=== PATIENT | female | born 1960 | race Two or more races ===

== ENCOUNTER 2024-05-23 07:49 | Outpatient (AMB) | payer MEDICAID, SELFPAY ==
--- NOTE | 2024-05-23 08:07 | ORTHONT_ITS ---
Vital signs 05/23/24 08:08 Height 1.6 m Height Method Stated Weight 64.098 kg Weight Measurement Method Standing Scale BMI 25.0 BP 112/74 Blood Pressure Source Automatic Cuff Blood Pressure Location Left Upper Arm Position Sitting Respiration 18 Pulse 74 Pulse Source Monitor Temp 96.8 F Temp Source Temporal Artery Scan Pulse Oximetry (%) 98 Oxygen Delivery Method Room Air Med/Allergies Allergies & Medications Allergies UNKNOWN ANESTHESIA Allergy (Severe, Uncoded 05/23/24 08:09) Anaphylaxis Medication Reconciliation simvastatin 20 mg tablet 20 mg PO QPM ##0 05/20/14 [History Confirmed 05/23/24] zolpidem 5 mg tablet 5 mg PO HS ##30 04/12/17 [History Confirmed 05/23/24] gabapentin 400 mg capsule 400 mg PO BID 06/26/21 [History Confirmed 05/23/24] ibuprofen 600 mg tablet 600 mg PO TID PRN Pain 06/26/21 [History Confirmed 05/23/24] levothyroxine 100 mcg tablet 100 mcg PO QDAY 06/26/21 [History Confirmed 05/23/24] loratadine 10 mg tablet 10 mg PO QDAY 06/26/21 [History Confirmed 05/23/24] metformin 1,000 mg tablet 1,000 mg PO BID 06/26/21 [History Confirmed 05/23/24] simvastatin 20 mg tablet 20 mg PO QDAY 06/26/21 [History Confirmed 05/23/24] dicyclomine 20 mg tablet 20 mg PO BID #14 tabs 01/12/22 [Rx Confirmed 05/23/24] hydrocodone 5 mg-acetaminophen 325 mg tablet 1 tab PO BID PRN 10/22/23 [History Confirmed 05/23/24] meloxicam 7.5 mg tablet 7.5 mg PO QDAY #45 tabs 10/26/23 [Rx Confirmed 05/23/24] meclizine 50 mg tablet 50 mg PO BID PRN dizziness #20 tabs 01/28/24 [Rx Confirmed 05/23/24] meloxicam 7.5 mg tablet 7.5 mg PO QDAY PRN knee pain #45 tabs 05/23/24 [Rx] Subjective Visit Visit for: follow up visit, hip, knee, x-rays (RESULTS) and MRI (RESULTS) Immunization / Flu Flu Vaccine in the Last 12 Months: Yes Flu Vaccine Exclusion Criteria: Already Received History of Present Illness Chief complaint: XRAY/MRI RESULTS Patient is a 64-year-old female who presents today for bilateral knee pain worse on the right. This has been ongoing for several years and is worsened in the last 6 months. She does have a history of multiple spine surgeries and is using a walker because of it. She has had cervical and lumbar surgery according to her. She is using a walker because of the pain patient had any injections. She was told that she is likely a candidate for a knee replacement by her primary care provider. She is here for follow-up. She gets injections every 3 months with her spine doctor and pain management doctor. She has had spine surgery twice in the past. She has not had any workup recently. She has persistent p ain and the injections do not really help. We went over her MRI and discussed that it shows a small disc bulge. I not see him again operative for her knee Pain Pain level (0-10): 8 Pain duration: ALL DAY Pain location: inside (medial) and outside (lateral) Pain quality: sharp, dull and aching Pain timing: night, increases with activity and stairs Associated signs & symptoms: numbness, weakness and stiffness Ambulatory data Ambulatory device: walker Treatments Improvement with previous injections: No Improvement with PT: No Improvement with NSAIDS: no Review of Systems Review of Systems: All systems negative unless otherwise noted in HPI. Exam Exam Patient is in no acute distress and is cooperative with the examination today. Breathing is nonlabored. In no respiratory distress. Bilateral extremities were evaluated and demonstrates sensation intact to light touch. Palpable pedal pulses are present. No significant edema is present. Bilateral hips were examined. The patient has no pain with log roll of the hips. Internal rotation to 30 degrees and external rotation to 30 degrees is painless. Negative FADIR. The left knee was examined. The left knee is in [varus] alignment. Range of motion from [0-115] degrees. Knee is stable to varus and valgus as well as AP translation with <5mm. Patient has a [negative] McMurrays. There is [no] pain with patellofemoral compression and [no] crepitus noted. The knee is [tender] to palpation [medially]. The right knee was also examined. The right knee is in [varus] alignment. Range of motion from [0-120] degrees. Knee is stable to varus and valgus as well as AP translation with <5mm. Patient has a [negative] McMurrays. There is [no] pain with patellofemoral compression and [no] crepitus noted. The knee is [tender] to palpation [medially]. Her x-rays demonstrate mild to moderate arthritis bilaterally. Her joint spaces are still relatively preserved. Assessment and Plan Problem List (1) Bilateral primary osteoarthritis of knee: Status: Acute Plan: Patient is a 63-year-old female with bilateral knee pain worse on the right. This been ongoing for several years and is worsened in the last 6 months. Her x-rays demonstrate mild to moderate arthritis. Her pain is significantly out of proportion to her x-rays. She reports pain that starts in the thigh and radiates down past her knee. It almost seems like it is spinal stenosis. I recommend a spine workup. It is a little peculiar to me that her pain is still out of proportion and that she is using a walker with her x-rays. I recommend doing a workup of her spine given the distribution of the pain We will try a right knee injection. Will also send her anti-inflammatories Recommend knee cortisone injection as patient would like to proceed with conservative treatment at this time. The risks and benefits of the procedure were reviewed with the patient and patient gave verbal consent to continue with the procedure. Procedure: performed by Dr. Proctor Using sterile technique the Right knee was thoroughly prepped with alcohol, and approximately 1 cc of Kenalog 40 mg/mL and 4 cc of 1% lidocaine was injected without resistance into the medial tibial femoral joint space. The patient tolerated the procedure. (2) Bilateral knee pain: Status: Acute (3) Spinal stenosis: Status: Acute Office Procedures GNS Level of Care Nursing/Assessment Patient Status: Established Patient Nursing Assessment/Reassesment: Medication Reconciliation, Update PMH in EMR and Vital Signs Coordination of Care: Complex Care and Chronic Disease 1-5, Education Complex Pt/Fam, Consent,records obtained, informed consent, 1 Ins Authorization, Results/Orders obtained and Staff clarify orders Established Patient Charge Established Patient Point Assignment: 110 Established Patient Point Charge: EP Level 3 (80-115) Past Medical History Past Medical History Have you ever been diagnosed with any of the following: Neurological Problems Migraine: Yes Cardiology Problems Hypercholesterolemia: Yes Congestive Heart Failure: No Hypertension: Yes Respiratory Problems Chronic Obstructive Pulmonary Disease (COPD): No Asthma: No Tuberculosis: Yes Smoking: No Smoking Cessation Counseling: No Smoking Exposure: No Tobacco Use: No Clubbing: No Genital/Urinary Problems Renal Disease: No Endocrine Problems Diabetes Mellitus Type 1: No Diabetes Mellitus Type 2: Yes Hypothyroidism: Yes Blood Problems Sickle Cell Disease: No Psychologic Problems Depression: Yes Other Problems Blood Transfusions: No Blood Transfusion Reaction: No Anesthesia Reactions: Yes Surgical History Hysterectomy: Yes
[2024-05-23 08:08] VITALS: BP 112/74; PULSE 74; RESP 18; TEMP 36; O2SAT 98; BMI 25.0
== END 2024-05-23 08:26 | disposition home or self-care (01) ==
LOC: HODSRG 07:49
PROVIDERS: PCP Physician Assistant; Referring Provider Physician Assistant; Supervising Provider Orthopaedic Surgery Adult Reconstructive Orthopaedic Surgery; Visit Provider Orthopaedic Surgery Adult Reconstructive Orthopaedic Surgery
DX: M17.0 Bilateral primary osteoarthritis of knee (principal); M25.561 Pain in right knee; M25.562 Pain in left knee; M48.00 Spinal stenosis, site unspecified; I10 Essential (primary) hypertension; E78.00 Pure hypercholesterolemia, unspecified
CPT/HCPCS: 20610; 99213; J3301; J3490; G0463

== ENCOUNTER 2024-08-29 21:22 | Emergency (ER) | payer MEDICAID, SELFPAY ==
[2024-08-29 21:23] VITALS: BMI 25.6
[2024-08-29 22:18] VITALS: BP 127/75; PULSE 91; RESP 18; TEMP 37.1; O2SAT 97
--- NOTE | 2024-08-29 22:26 | XR_ITS ---
Examination: Duplex scan of the lower extremity, unilateral left complete Date and time of exam: August 29, 2024 10:30 PM Indications: Post varicose vein surgery August 11, 2024 with leg pain and swelling Technique: Duplex scan of the extremity veins using B-mode/grayscale imaging and Doppler spectral analysis and color flow Attention is directed to internal echogenicity, compression and augmentation involving these veins, color flow assessment, spectral analysis Findings: Major deep venous structures in the extremity demonstrate normal course and caliber. There is no evidence of deep vein thrombosis. Normal color flow and spectral analysis Impression: Negative for DVT.. Positive for DVT involving superficial greater saphenous vein
[2024-08-29] MEDS: HYDROcodone/APAP 5/325 TABLET 1 TAB PO (22:30)
--- NOTE | 2024-08-29 22:36 | PD.EDEXREM ---
ED Extremity Problem RME/HPI General Chief complaint: Extremity Injury, Lower Stated complaint: LEFT LEG PAIN/NUMBNESS Time Seen by Provider: 08/29/24 22:26 Arrival date/time: 08/29/24 21:22 64F with history of hypothyroidism and DM presents to ED with 2 days of L lower back pain that radiates down LLE and some numbness, but no weakness. Patient denies fall/trauma and SOB. Patient had bilateral varicose vein surgery about 2 weeks ago. Limitations: no limitations Related Data Home Medications ?Medication ?Instructions ?Recorded ?Confirmed simvastatin 20 mg tablet 20 mg PO QPM ##0 05/20/14 05/23/24 zolpidem 5 mg tablet 5 mg PO HS ##30 04/12/17 05/23/24 gabapentin 400 mg capsule 400 mg PO BID 06/26/21 05/23/24 ibuprofen 600 mg tablet 600 mg PO TID PRN Pain 06/26/21 05/23/24 levothyroxine 100 mcg tablet 100 mcg PO QDAY 06/26/21 05/23/24 loratadine 10 mg tablet 10 mg PO QDAY 06/26/21 05/23/24 metformin 1,000 mg tablet 1,000 mg PO BID 06/26/21 05/23/24 simvastatin 20 mg tablet 20 mg PO QDAY 06/26/21 05/23/24 hydrocodone 5 mg-acetaminophen 325 1 tab PO BID PRN 10/22/23 05/23/24 mg tablet Previous Rx's ?Medication ?Instructions ?Recorded dicyclomine 20 mg tablet 20 mg PO BID #14 tabs 01/12/22 meloxicam 7.5 mg tablet 7.5 mg PO QDAY #45 tabs 10/26/23 meclizine 50 mg tablet 50 mg PO BID PRN dizziness #20 tabs 01/28/24 meloxicam 7.5 mg tablet 7.5 mg PO QDAY PRN knee pain #45 05/23/24 tabs apixaban 5 mg (74 tabs) tablets in 5 mg PO BID #74 tabs 08/30/24 a dose pack (Eliquis DVT-PE Treat 30D Start) Allergies Allergy/AdvReac Type Severity Reaction Status Date / Time UNKNOWN ANESTHESIA Allergy Severe Anaphylaxis Uncoded 05/23/24 08:09 Review of Systems Review of Systems Systems Reviewed: All systems reviewed, normal except as documented Constitutional Constitutional: Reports system reviewed and no additional complaints, except as documented, Denies fever(s) and Denies headache(s) ENT Ears, Nose, Mouth, and Throat: Denies disequilibrium and Denies headache(s) Cardiovascular Cardiovascular: Reports system reviewed and no additional complaints, except as documented, Denies chest pain and Denies dyspnea Respiratory Respiratory: Reports system reviewed and no additional complaints, except as documented, Denies cough and Denies dyspnea Gastrointestinal Gastrointestinal: Reports system reviewed and no additional complaints, except as documented, Denies abdominal pain, Denies nausea and Denies vomiting Musculoskeletal Musculoskeletal: Reports as per HPI, Reports back pain and Reports radiating pain into limb Neurologic Neurologic: Reports system reviewed and no additional complaints, except as documented, Denies confusion, Denies disequilibrium and Denies headache(s) Psychiatric Psychiatric: Denies confusion Past Medical History Past Medical History NEUROLOGIC: Positive Neurological Disorders and Migraine CARDIAC: Positive Hypercholesterolemia and Hypertension; Negative Cardiac Disorders or Congestive Heart Failure RESPIRATORY: Positive Tuberculosis; Negative Chronic Obstructive Pulmonary Disease (COPD), Asthma, Smoking, Smoking Cessation Counseling, Smoking Exposure, Tobacco Use or Clubbing GASTROINTESTINAL: Positive Gastrointestinal Disorders GENITOURINARY: Negative Genitourinary Disorders or Renal Disease MUSCULOSKELETAL: Positive Musculoskeletal Disorders ENDOCRINE: Positive Endocrine Disorders, Diabetes Mellitus Type 2 and Hypothyroidism; Negative Diabetes Mellitus Type 1 HEMATOLOGIC: Negative Blood Disorders or Sickle Cell Disease PSYCHO/SOCIAL: Positive Depression OTHER HISTORY: Positive Anesthesia Reactions; Negative Autoimmune Disease, Blood Transfusions or Blood Transfusion Reaction Family History FAMILY HISTORY: Positive Family Cardiac Disorders; Negative Family Cancer, Family Surgery or Family Anesthesia Reaction Surgical History SURGICAL: Positive Abdominal Surgery, Joint Replacement, Hysterectomy and Section; Negative Cardiac Surgery, Endocrine Surgery, Ear Surgery or Neurologic Surgery Social History SMOKING STATUS: Never smoker ED Exam General Limitations: Present no limitations General appearance: Present alert and in no apparent distress Head Head exam: Present atraumatic Eye Eye exam: Present normal appearance, PERRL and EOMI ENT ENT exam: Present normal exam, normal oropharynx and mucous membranes moist Neck Neck exam: Present normal inspection, full ROM and trachea midline Chest Chest inspection: Present normal inspection and symmetric chest wall rise Respiratory Respiratory exam: Present normal lung sounds bilaterally Cardiovascular Cardiovascular exam: Present regular rate, normal rhythm and normal heart sounds Abdominal Exam Abdominal exam: Present soft and normal bowel sounds Extremities Exam Extremities exam: Present normal inspection and full ROM Back Exam Back exam: Present normal inspection and full ROM Neurological Exam Neurological exam: Present alert, oriented X3 and CN II-XII intact Psychiatric Psychiatric exam: Present normal affect and normal mood Skin Skin exam: Present warm, dry, intact and normal color Course Quality Measures none Orders Category Date Time Status US venous doppler LE LT Stat Exams 08/29/24 22:26 Completed CBC Stat Lab 08/29/24 23:12 Completed CMP [Comprehensive Metabolic Panel] Stat Lab 08/29/24 23:12 Completed INR [Prothrombin Time with INR] Stat Lab 08/29/24 23:12 Completed PTT [Partial Thromboplastin Time] Stat Lab 08/29/24 23:12 Completed Apixaban [Eliquis] Med 08/30/24 00:15 Discontinued 10 mg PO X1 ONE HYDROcodone*/APAP 5/325 [Britt 5/325] Med 08/29/24 22:26 Discontinued 1 tab PO X1 ONE Morphine Inj Med 08/30/24 00:15 Discontinued 5 mg IM X1 ONE Vital Signs Vital signs: Vital Signs Temperature 98.7 F 08/29/24 22:18 Pulse Rate 91 08/29/24 22:18 Respiratory Rate 18 08/29/24 22:18 Blood Pressure 127/75 08/29/24 22:18 Pulse Oximetry (%) 97 08/29/24 22:18 Oxygen Delivery Method Room Air 08/29/24 22:18 O2 at 97% on RA and WNLs Extremity Problem MDM Narrative MDM Narrative:: 64F with history of hypothyroidism and DM presents to ED with 2 days of L lower back pain that radiates down LLE and some numbness, but no weakness. Patient denies fall/trauma and SOB. Patient had bilateral varicose vein surgery about 2 weeks ago. Physical exam reveals no gross abnormality of LLE. Patient is afebrile, calm, and alert. US reveals no DVT, but proximal superficial greater saphenous vein thrombosis. Given location, patient's age and risk factors, will treat as DVT. Patient data External records reviewed:: [facility] previous records Clinical information provided by:: patient Social determinants that could affect healthcare access:: none Patient has the following chronic illnesses:: hypothyroidism and DM How is presenting disease/condition affected by chronic disease/condition?: exacerbated by Evaluation data The following diagnostics were reviewed and interpreted by me:: radiology exam(s) Lab and/or radiology exams considered but not ordered:: ordered Interpretation Summary: above Medications / Prescriptions Medications or Prescriptions considered but not ordered:: ordered Medication administrations:: Medication Administration History Discontinued Medications Hydrocodone Bitart/Acetaminophen (Hydrocodone/Apap 5/325 Tablet) 1 tab PO X1 ONE Stop: 08/29/24 22:27 Last Admin: 08/29/24 22:30 Dose: 1 tab Documented By: LINA Apixaban (Apixaban 2.5 Mg Tablet) 10 mg PO X1 ONE Stop: 08/30/24 00:16 Morphine Sulfate (Morphine Sulf Inj 10 Mg/Ml Vial) 5 mg IM X1 ONE Stop: 08/30/24 00:16 above Consultations Consultation(s) initiated? (list below): No Diagnosis Extremity Problem Differential Diagnosis: herpes zoster, gout, cellulitis, superficial thrombophlebitis, deep venous thrombosis of upper extremity, lower extremity edema, deep vein thrombosis of lower extremity and other (thrombosis of L saphenous vein) Most likely diagnosis given after review of the tests above:: thrombosis of L saphenous vein Admission Indicated Admission indicated?: not indicated Admission Request Was there a request for admission?: No Disposition Plan Disposition Plan: Discharge Discharge Attestation Discharge Attestation: The patient and all family members were given an opportunity to ask questions and understood the discharge instructions. Discharge instructions specifically effects, indications for sooner follow up or return to the emergency department, and the expected course of current diagnosis. Patient condition: Stable Discharge Plan Plan Patient Disposition: HOME (Self Care) Disposition Comment: Stable Prescriptions/Referrals Prescriptions/Med Rec: Pierce Richard DVT-PE Treat 30D Start 5 mg (74 tabs) tablets,dose pack 5 mg PO BID Qty: 74 0RF Rx Instructions: 10 mg BID for 1 week; 5 mg BID afterwards No Action hydrocodone-acetaminophen 5-325 mg tablet 1 tab PO BID PRN meloxicam 7.5 mg tablet 7.5 mg PO QDAY Qty: 45 3RF meloxicam 7.5 mg tablet 7.5 mg PO QDAY PRN (Reason: knee pain) Qty: 45 3RF simvastatin 20 MG tablet 20 mg PO QPM Qty: 0 zolpidem 5 mg Tablet 5 mg PO HS Qty: 30 gabapentin 400 mg capsule 400 mg PO BID levothyroxine 100 mcg tablet 100 mcg PO QDAY simvastatin 20 mg tablet 20 mg PO QDAY metformin 1,000 mg tablet 1,000 mg PO BID ibuprofen 600 mg tablet 600 mg PO TID PRN (Reason: Pain) loratadine 10 mg tablet 10 mg PO QDAY dicyclomine 20 mg tablet 20 mg PO BID Qty: 14 0RF meclizine 50 mg tablet 50 mg PO BID PRN (Reason: dizziness) Qty: 20 0RF Referrals: No Primary/Family,Physician [Primary Care Provider] - In 1 week Problem List Clinical Impression: Thrombosis of left saphenous vein Patient/Caregiver Discharge Instructions Education Materials: Venous Thromboembolism Additional Instructions: Please follow-up with PCP within 24-48 hours and return immediately if symptoms worsen. Print Language: Swedish Stand Alone Forms: Patient Portal Info Letter PA/RESEARCH EDITOR Supervising Physician PA/RESEARCH EDITOR Supervising Physician: Dr. Angeles
[2024-08-29 23:21] LABS: Basophils # (Auto) 0.1 Thou/mm3 (0.0-0.2); Basophils % (Auto) 1 % (0-2.5); Eosinophils # (Auto) 0.4 Thou/mm3 (0.0-0.5); Eosinophils % (Auto) 4 % (0-10); Hemoglobin 12.4 g/dL (12.0-16.0); Immature Granulocytes % (Auto) 0 % (0-0); Immature Granulocytes Auto 0.02 Thou/mm3 (0.00-0.00); Lymphocytes # (Auto) 3.3 Thou/mm3 (1.0-4.8); Lymphocytes % (Auto) 36 % (10-50); Mean Corpuscular HGB Conc 32.6 g/dl (31.0-37.0); Mean Corpuscular Hemoglobin 29.7 pg (25.0-35.0); Mean Corpuscular Volume 91 fL (80-100); Monocytes # (Auto) 0.7 Thou/mm3 (0.0-0.8); Monocytes % (Auto) 7 % (0-12); Neutrophils # (Auto) 4.8 Thou/mm3 (1.8-7.7); Neutrophils % (Auto) 52 % (37-80); Nucleated Red Blood Cell % 0 /100 WBC (0); Platelet Count 267 Thou/mm3 (140-440); RDW Standard Deviation 43.1 fL (36.4-46.3); Red Blood Count 4.18 Miln/mm3 (4.00-5.20); White Blood Count 9.3 Thou/mm3 (3.6-11.0)
[2024-08-29 23:34] LABS: INR 0.9 (0.9-1.3); Partial Thromboplastin Time 24.8 Seconds (22.0-36.0); Prothrombin Time 10.3 Seconds (9.0-12.2)
[2024-08-29 23:48] LABS: Anion Gap 7 (7-16); Blood Urea Nitrogen 20 mg/dL (9-23); Carbon Dioxide 25.4 mMol/L (20.0-31.0); Chloride 108 mMol/L (98-107); Creatinine (Component) 0.7 mg/dL (0.6-1.3); Potassium 4.2 mMol/L (3.4-5.1); Sodium 140 mMol/L (136-145)
[2024-08-29 23:49] LABS: Alanine Aminotransferase 13 U/L (10-49); Albumin, Serum 4.1 gm/dL (3.4-4.8); Albumin/Globulin Ratio 1.6 (1.2-2.2); Alkaline Phosphatase 94 U/L (46-116); Aspartate Amino Transferase 17 U/L (0-34); BUN/Creatinine Ratio 29 Ratio (12-20); Bilirubin,Total 0.4 mg/dL (0.3-1.2); Calcium 9.1 mg/dL (8.3-10.6); Calcium (Corrected) 9.1 mg/dL (8.5-10.1); Globulin 2.5 gm/dL (2.3-3.5); Glucose 106 mg/dL (74-106); Osmolality,Calculated 282 (275-295); Total Protein 6.6 gm/dL (5.7-8.2); eGFR > 60 See Note
[2024-08-30] MEDS: APIXABAN 2.5 MG TABLET 10 MG PO (00:32)
[2024-08-30] MEDS: MORPHINE SULF INJ 10 MG/ML VIAL 5 MG IM (00:32)
== END 2024-08-30 00:50 | disposition home or self-care (01) ==
PROVIDERS: Physician Assistant; Emergency Provider Emergency Medicine
DX: I82.812 Embolism and thrombosis of superficial veins of left lower extremity (principal)
CPT/HCPCS: 36415; 80053; 85025; 85610; 85730; 93971; 96372; 99284; J2270; A9270

== ENCOUNTER → 2024-12-05 | Outpatient (CLI) | payer MEDICAID, SELFPAY ==
--- NOTE | 2024-12-05 13:00 | XR_ITS ---
Examination: Screening digital mammography, bilateral Computer aided detection 3-D breast Tomosynthesis, bilateral Date and time of exam: December 05, 2024 1145 hours Compared to mammograms dating to October 28, 2015 Indication: Screening Technique: Nonmagnified MLO, CC views of the breasts to been obtained, reconstructed from 3-D Tomosynthesis images. R2 computer aided detection program utilized for evaluation of suspicious masses and/or abnormal calcifications. 3-D Tomosynthesis images obtained. Findings: Scattered areas of fibroglandular density. Again noted small focus microcalcifications nipple level left breast posterior depth Impression: BI-RADS Category 0: Incomplete: Need additional imaging evaluation Recommend follow-up spot magnification views of microcalcifications posterior left breast as well as left breast sonography to complete the workup
== END | disposition home or self-care (01) ==
PROVIDERS: PCP Physician Assistant; Referring Provider Physician Assistant; Visit Provider Physician Assistant
DX: Z12.31 Encounter for screening mammogram for malignant neoplasm of breast (principal); R92.323 Mammographic fibroglandular density, bilateral breasts; R92.0 Mammographic microcalcification found on diagnostic imaging of breast
CPT/HCPCS: 77063; 77067

== ENCOUNTER 2024-12-28 09:08 | Emergency (ER) | payer MEDICAID, SELFPAY ==
[2024-12-28 09:09] VITALS: BMI 24.6
[2024-12-28 09:18] VITALS: BP 113/72; PULSE 86; RESP 16; TEMP 37.4; O2SAT 97
--- NOTE | 2024-12-28 09:28 | XR_ITS ---
Examination: CT abdomen and pelvis without contrast. Coronal 3-D reconstructions. Sagittal 2-D reconstructions. Date and time of exam:December 28, 2024 0933 hours COMPARISON: January 12, 2022 INDICATIONS: Onset left-sided flank pain beginning this morning CTDI: vol (mGy): 8.05 DLP: (mGycm): 141 Technique: Axial images of the abdomen have been obtained, 3 mm slice thickness Intravenous contrast material has not been administered. Low dose protocols were performed. One or more of the following dose reduction techniques were used; automated exposure control, adjustment of the mA and/or KV according to patient size, use of iterative reconstruction technique. Findings: No focal liver or splenic lesions Absent gallbladder No pancreatic mass. No renal or ureteral calculi, no hydronephrosis Aorta normal size No bowel obstruction No pericecal inflammatory change Colonic diverticulosis No definite diverticulitis Contracted urinary bladder No pelvic mass Significant osteopenia IMPRESSION: No renal or ureteral calculi, no hydronephrosis. No bladder mass or bladder calculi.
--- NOTE | 2024-12-28 09:29 | PD.EDRME ---
Rapid Medical Screening Exam RME Arrival date/time: 12/28/24 09:08 64-year-old female with a history of hyperlipidemia, type 2 diabetes, hypothyroidism, presents to the emergency room with a chief complaint of left lower quadrant abdominal pain x 4 days. Chief Complaint: Abdominal Pain Time Seen by Provider: 12/28/24 09:10 Vital signs: Vital Signs Temperature 99.4 F 12/28/24 09:18 Pulse Rate 86 12/28/24 09:18 Respiratory Rate 16 12/28/24 09:18 Blood Pressure 113/72 12/28/24 09:18 Pulse Oximetry (%) 97 12/28/24 09:18 Oxygen Delivery Method Room Air 12/28/24 09:18 Vital signs reviewed by provider: Yes
[2024-12-28 09:56] LABS: Basophils # (Auto) 0.0 Thou/mm3 (0.0-0.2); Basophils % (Auto) 0 % (0-2.5); Eosinophils # (Auto) 0.1 Thou/mm3 (0.0-0.5); Eosinophils % (Auto) 2 % (0-10); Hematocrit 37.7 % (36.0-46.0); Hemoglobin 12.9 g/dL (12.0-16.0); Immature Granulocytes Auto 0.01 Thou/mm3 (0.00-0.00); Lymphocytes # (Auto) 1.7 Thou/mm3 (1.0-4.8); Lymphocytes % (Auto) 24 % (10-50); Mean Corpuscular HGB Conc 34.2 g/dl (31.0-37.0); Mean Corpuscular Hemoglobin 30.1 pg (25.0-35.0); Mean Corpuscular Volume 88 fL (80-100); Monocytes # (Auto) 0.4 Thou/mm3 (0.0-0.8); Monocytes % (Auto) 5 % (0-12); Neutrophils # (Auto) 4.6 Thou/mm3 (1.8-7.7); Neutrophils % (Auto) 68 % (37-80); Nucleated Red Blood Cell # 0.00 Thou/mm3 (0.00-0.00); Nucleated Red Blood Cell % 0 /100 WBC (0); Platelet Count 289 Thou/mm3 (140-440); RDW Standard Deviation 41.3 fL (36.4-46.3); Red Blood Count 4.29 Miln/mm3 (4.00-5.20); White Blood Count 6.8 Thou/mm3 (3.6-11.0)
[2024-12-28 10:08] LABS: Collection Type, Urine Clean Catch
[2024-12-28 10:17] LABS: Alanine Aminotransferase 15 U/L (10-49); Albumin, Serum 4.6 gm/dL (3.4-4.8); Albumin/Globulin Ratio 1.4 (1.2-2.2); Alkaline Phosphatase 105 U/L (46-116); Anion Gap 7 (7-16); Aspartate Amino Transferase 19 U/L (0-34); BUN/Creatinine Ratio 14 Ratio (12-20); Bilirubin,Total 0.6 mg/dL (0.3-1.2); Blood Urea Nitrogen 11 mg/dL (9-23); Calcium 9.3 mg/dL (8.3-10.6); Calcium (Corrected) 9.3 mg/dL (8.5-10.1); Carbon Dioxide 24.7 mMol/L (20.0-31.0); Chloride 108 mMol/L (98-107); Creatinine (Component) 0.8 mg/dL (0.6-1.3); Estimated Creatinine Clearance 64.4 mL/min (>60); Globulin 3.2 gm/dL (2.3-3.5); Glucose 121 mg/dL (74-106); Lipase 77 U/L (12-53); Osmolality,Calculated 279 (275-295); Potassium 3.7 mMol/L (3.4-5.1); Sodium 140 mMol/L (136-145); Total Protein 7.8 gm/dL (5.7-8.2); eGFR > 60 See Note
[2024-12-28 11:45] LABS: Bacteria,Urine 1+; Bilirubin,Urine Negative (Negative); Blood,Urine Negative (Negative); Color,Urine Yellow (Lt Yel-Yel); Glucose, Urine Negative (Negative); Ketones,Urine Negative (Negative); Leukocyte Esterase,Urine Positive (Negative); Nitrite,Urine Negative (Negative); PH,Urine 6.0 (5.0-7.0); Protein,Urine 1+ (Neg - Trace); RBC,Urine 3 /hpf (0-3); Specific Gravity,Urine 1.024 (1.001-1.035); Squamous Epithelial Cell,Urine 3 /hpf (0-5); Urobilinogen,Urine Negative mg/dL (0.0-1.0); WBC,Urine 14 /hpf (0-5)
[2024-12-28 11:50] LABS: Clarity,Urine Hazy (Clear/Hazy)
--- NOTE | 2024-12-28 12:11 | PD.EDABDPN ---
ED Abdominal Pain RME/HPI General Chief Complaint: Abdominal Pain Stated complaint: LLQ PAIN FOR 4 DAYS Time seen by provider: 12/28/24 09:10 Arrival date/time: 12/28/24 09:08 64-year-old female with no known medical history presents to the emergency room with a chief complaint of left lower quadrant abdominal pain and dysuria x 4 days Source: patient Mode of arrival: ambulatory Limitations: no limitations RME / HPI RME / HPI narrative: 12/28/24 09:08 64-year-old female with a history of hyperlipidemia, type 2 diabetes, hypothyroidism, presents to the emergency room with a chief complaint of left lower quadrant abdominal pain x 4 days. Related Data Home Medications ?Medication ?Instructions ?Recorded ?Confirmed simvastatin 20 mg tablet 20 mg PO QPM ##0 05/20/14 05/23/24 zolpidem 5 mg tablet 5 mg PO HS ##30 04/12/17 05/23/24 gabapentin 400 mg capsule 400 mg PO BID 06/26/21 05/23/24 ibuprofen 600 mg tablet 600 mg PO TID PRN Pain 06/26/21 05/23/24 levothyroxine 100 mcg tablet 100 mcg PO QDAY 06/26/21 05/23/24 loratadine 10 mg tablet 10 mg PO QDAY 06/26/21 05/23/24 metformin 1,000 mg tablet 1,000 mg PO BID 06/26/21 05/23/24 simvastatin 20 mg tablet 20 mg PO QDAY 06/26/21 05/23/24 hydrocodone 5 mg-acetaminophen 325 1 tab PO BID PRN 10/22/23 05/23/24 mg tablet Previous Rx's ?Medication ?Instructions ?Recorded dicyclomine 20 mg tablet 20 mg PO BID #14 tabs 01/12/22 meloxicam 7.5 mg tablet 7.5 mg PO QDAY #45 tabs 10/26/23 meclizine 50 mg tablet 50 mg PO BID PRN dizziness #20 tabs 01/28/24 meloxicam 7.5 mg tablet 7.5 mg PO QDAY PRN knee pain #45 05/23/24 tabs apixaban 5 mg (74 tabs) tablets in 5 mg PO BID #74 tabs 08/30/24 a dose pack (C[employer] SecurityquProxino DVT-PE Treat 30D Start) Allergies Allergy/AdvReac Type Severity Reaction Status Date / Time UNKNOWN ANESTHESIA AdvReac Mild Vomiting Uncoded 12/28/24 09:14 Review of Systems Review of Systems Systems Reviewed: All systems reviewed, normal except as documented Constitutional Constitutional: Reports system reviewed and no additional complaints, except as documented, Denies fatigue, Denies fever(s), Denies headache(s) and Denies weakness Eyes Eyes: Reports system reviewed and no additional complaints, except as documented, Denies blurry vision and Denies change in vision ENT Ears, Nose, Mouth, and Throat: Reports system reviewed and no additional complaints, except as documented, Denies otalgia, Denies headache(s), Denies nasal congestion, Denies throat swelling and Denies vertigo Cardiovascular Cardiovascular: Reports system reviewed and no additional complaints, except as documented, Denies chest pain, Denies dyspnea and Denies dyspnea on exertion Respiratory Respiratory: Reports system reviewed and no additional complaints, except as documented, Denies chest congestion, Denies cough, Denies dyspnea, Denies dyspnea on exertion and Denies wheezing Gastrointestinal Gastrointestinal: Reports system reviewed and no additional complaints, except as documented, Reports abdominal pain, Reports cramping and Denies vomiting Genitourinary Genitourinary: Reports system reviewed and no additional complaints, except as documented Musculoskeletal Musculoskeletal: Reports system reviewed and no additional complaints, except as documented and Denies back pain Integumentary/Breasts Skin/Breast: Reports system reviewed and no additional complaints, except as documented and Denies wounds Neurologic Neurologic: Reports system reviewed and no additional complaints, except as documented, Denies confusion, Denies headache(s), Denies lack of coordination, Denies vertigo and Denies weakness Psychiatric Psychiatric: Reports system reviewed and no additional complaints, except as documented, Denies anxiety, Denies confusion, Denies depression, Denies paranoia, Denies suicidal ideation and Denies tactile hallucinations Endocrine Endocrine: Reports system reviewed and no additional complaints, except as documented and Denies fatigue Hematologic/Lymphatic Hematologic/Lymphatic: Reports system reviewed and no additional complaints, except as documented and Denies lymphadenopathy Allergic/Immunologic Allergic/Immunologic: Reports system reviewed and no additional complaints, except as documented, Denies throat swelling, Denies urticaria and Denies wheezing Past Medical History Past Medical History NEUROLOGIC: Positive Neurological Disorders and Migraine CARDIAC: Positive Hypercholesterolemia and Hypertension; Negative Cardiac Disorders or Congestive Heart Failure RESPIRATORY: Positive Tuberculosis; Negative Chronic Obstructive Pulmonary Disease (COPD), Asthma, Smoking, Smoking Cessation Counseling, Smoking Exposure, Tobacco Use or Clubbing GASTROINTESTINAL: Positive Gastrointestinal Disorders GENITOURINARY: Negative Genitourinary Disorders or Renal Disease MUSCULOSKELETAL: Positive Musculoskeletal Disorders ENDOCRINE: Positive Endocrine Disorders, Diabetes Mellitus Type 2 and Hypothyroidism; Negative Diabetes Mellitus Type 1 HEMATOLOGIC: Negative Blood Disorders or Sickle Cell Disease PSYCHO/SOCIAL: Positive Depression OTHER HISTORY: Positive Anesthesia Reactions; Negative Autoimmune Disease, Blood Transfusions or Blood Transfusion Reaction Family History FAMILY HISTORY: Positive Family Cardiac Disorders; Negative Family Cancer, Family Surgery or Family Anesthesia Reaction Surgical History SURGICAL: Positive Abdominal Surgery, Joint Replacement, Hysterectomy and Section; Negative Cardiac Surgery, Endocrine Surgery, Ear Surgery or Neurologic Surgery Social History SMOKING STATUS: Never smoker ED Exam General Limitations: Present no limitations General appearance: Present alert and in no apparent distress Head Head exam: Present atraumatic Eye Eye exam: Present normal appearance, PERRL and EOMI ENT ENT exam: Present normal exam, normal oropharynx and mucous membranes moist Neck Neck exam: Present normal inspection, full ROM and trachea midline Chest Chest inspection: Present normal inspection and symmetric chest wall rise Respiratory Respiratory exam: Present normal lung sounds bilaterally Cardiovascular Cardiovascular exam: Present regular rate, normal rhythm and normal heart sounds Abdominal Exam Abdominal exam: Present soft, tenderness and normal bowel sounds; Absent distention, guarding, rebound, Bush's sign or tenderness at McBurney's Point Abdominal tenderness: Present LLQ and mild Extremities Exam Extremities exam: Present normal inspection and full ROM Back Exam Back exam: Present normal inspection and full ROM Neurological Exam Neurological exam: Present alert, oriented X3 and CN II-XII intact Psychiatric Psychiatric exam: Present normal affect and normal mood Skin Skin exam: Present warm, dry, intact and normal color Course Quality Measures none Orders Category Date Time Status CT abdomen pelvis wo con Stat Exams 12/28/24 09:28 Completed CBC Stat Lab 12/28/24 09:34 Completed CMP [Comprehensive Metabolic Panel] Stat Lab 12/28/24 09:34 Completed Lipase Stat Lab 12/28/24 09:34 Completed UA [Urinalysis] Stat Lab 12/28/24 09:50 Completed Urine Culture Stat Lab 12/28/24 09:50 Received Vital Signs Vital signs: Vital Signs Temperature 99.4 F 12/28/24 09:18 Pulse Rate 86 12/28/24 09:18 Respiratory Rate 16 12/28/24 09:18 Blood Pressure 113/72 12/28/24 09:18 Pulse Oximetry (%) 97 12/28/24 09:18 Oxygen Delivery Method Room Air 12/28/24 09:18 Abdominal Pain MDM MDM Narrative MDM Narrative:: 64-year-old female with no known medical history presents to the emergency room with a chief complaint of left lower quadrant abdominal pain and dysuria x 4 days Patient is hemodynamically stable and in no apparent distress. She is afebrile not tachycardic not tachypneic Physical examination shows tenderness and pain to the patient's left lower quadrant with palpation. There is no tenderness to McBurney's point and there is no tenderness to right upper quadrant with a negative Bush sign. A CT of the abdomen and pelvis was completed and shows some diverticulosis but negative for diverticulitis. The patient is also has a urinary tract infection. Patient was seen by her primary care provider yesterday and given Macrobid for urinary tract infection. Patient was discharged and educated to follow-up with primary care provider in the next 24 to 48 hours and return to the emergency room for any evidence of worsening signs or symptoms Patient data External records reviewed:: [facility] previous records Clinical information provided by:: patient Social determinants that could affect healthcare access:: none Patient has the following chronic illnesses:: No chronic illness How is presenting disease/condition affected by chronic disease/condition?: no chronic disease Evaluation data The following diagnostics were reviewed and interpreted by me:: lab results and radiology exam(s) Lab and/or radiology exams considered but not ordered:: Labs and radiology exams considered in order Interpretation Summary: CT abdomen and pelvis-Findings: No focal liver or splenic lesions Absent gallbladder No pancreatic mass. No renal or ureteral calculi, no hydronephrosis Aorta normal size No bowel obstruction No pericecal inflammatory change Colonic diverticulosis No definite diverticulitis Contracted urinary bladder No pelvic mass Significant osteopenia IMPRESSION: No renal or ureteral calculi, no hydronephrosis. No bladder mass or bladder calculi. Medications / Prescriptions Medications or Prescriptions considered but not ordered:: No medication given Medication administrations:: No medication given Consultations Consultation(s) initiated? (list below): No Diagnosis Differential diagnosis abdominal pain: abdominal pain, diverticulitis, gastroenteritis, small bowel obstruction and other (Urinary tract infection) Most likely diagnosis given after review of the tests above:: Urinary tract infection final Admission Indicated Admission indicated?: not indicated Admission Request Was there a request for admission?: No Disposition Plan Disposition Plan: Discharge Discharge Attestation Discharge Attestation: The patient and all family members were given an opportunity to ask questions and understood the discharge instructions. Discharge instructions specifically effects, indications for sooner follow up or return to the emergency department, and the expected course of current diagnosis. Patient condition: Stable Discharge Plan Plan Patient Disposition: HOME (Self Care) Discharge Disposition comment: Stable Prescriptions/Referrals Prescriptions/Med Rec: No Action hydrocodone-acetaminophen 5-325 mg tablet 1 tab PO BID PRN meloxicam 7.5 mg tablet 7.5 mg PO QDAY Qty: 45 3RF meloxicam 7.5 mg tablet 7.5 mg PO QDAY PRN (Reason: knee pain) Qty: 45 3RF simvastatin 20 MG tablet 20 mg PO QPM Qty: 0 zolpidem 5 mg Tablet 5 mg PO HS Qty: 30 gabapentin 400 mg capsule 400 mg PO BID levothyroxine 100 mcg tablet 100 mcg PO QDAY simvastatin 20 mg tablet 20 mg PO QDAY metformin 1,000 mg tablet 1,000 mg PO BID ibuprofen 600 mg tablet 600 mg PO TID PRN (Reason: Pain) loratadine 10 mg tablet 10 mg PO QDAY dicyclomine 20 mg tablet 20 mg PO BID Qty: 14 0RF meclizine 50 mg tablet 50 mg PO BID PRN (Reason: dizziness) Qty: 20 0RF Eliquis DVT-PE Treat 30D Start 5 mg (74 tabs) tablets,dose pack 5 mg PO BID Qty: 74 0RF Rx Instructions: 10 mg BID for 1 week; 5 mg BID afterwards Referrals: Pat Cerrato PA-C [Primary Care Provider] - In 1 week Problem List Clinical Impression: Diverticulosis, UTI (urinary tract infection) Patient/Caregiver Discharge Instructions Education Materials: ED CYSTITIS Female Adult, ED Diverticulosis Additional Instructions: Please follow-up with your primary care provider in the next [address] of your abdomen and pelvis was negative for any acute findings however they did show some diverticulosis. Please follow-up with your primary care provider for further management Your urinalysis still showed a urinary tract infection. Please continue to take the antibiotics that were given by your primary care provider For any evidence of worsening signs or symptoms return to the emergency room immediately Print Language: Nicaraguan Stand Alone Forms: Shanelle Award Info., Patient Portal Info Letter PA/ELECTRICIAN FRONT Supervising Physician PA/ELECTRICIAN FRONT Supervising Physician: Dr. Villalba
[2024-12-28 12:14] VITALS: BP 110/74; PULSE 73; RESP 15; TEMP 37.1; O2SAT 99
== END 2024-12-28 12:17 | disposition home or self-care (01) ==
PROVIDERS: Nurse Practitioner Family; Emergency Provider Family Medicine; PCP Physician Assistant
DX: K57.30 Diverticulosis of large intestine without perforation or abscess without bleeding (principal); N39.0 Urinary tract infection, site not specified; E11.9 Type 2 diabetes mellitus without complications; E78.5 Hyperlipidemia, unspecified; E03.9 Hypothyroidism, unspecified
CPT/HCPCS: 36415; 74176; 80053; 81001; 83690; 85025; 87086; 99284

== ENCOUNTER → 2025-02-09 | Outpatient (CLI) | payer MEDICAID, SELFPAY ==
--- NOTE | 2025-02-09 09:00 | XR_ITS ---
Examination: Breast ultrasound, unilateral, left complete Date and time of exam: February 09, 2025 0941 hours INDICATIONS: Mammogram December 05, 2024 microcalcifications nipple level left breast posterior depth, left breast tenderness several years Technique: Real-time unger scale ultrasonographic imaging performed left breast including all 4 quadrants as well as nipple retroareolar and axillary region. Findings: No cystic or solid mass IMPRESSION: BI-RADS Category 1: Negative study
--- NOTE | 2025-02-09 09:45 | XR_ITS ---
Examination: Diagnostic digital mammography, unilateral, left Computer aided detection 3-D breast Tomosynthesis, unilateral Date and time of exam: February 09, 2025 0950 hours INDICATIONS: Microcalcifications posterior left breast on mammogram December 05, 2024 Technique: Nonmagnified MLO, CC views of the left breast have been obtained, reconstructed from 3-D Tomosynthesis images. R2 computer aided detection program utilized for evaluation of suspicious masses and/or abnormal calcifications. 3-D Tomosynthesis images obtained. Findings: Scattered areas of fibroglandular density There are 2 suspicious group foci of microcalcifications in the outer left breast on the spot compression magnification CC view The spot compression MLO view is centered too low to assess these calcifications Impression: BI-RADS category 0: Incomplete: Need additional imaging evaluation The patient needs to return for spot magnification view centered more cephalad lateral medial left breast
== END | disposition home or self-care (01) ==
PROVIDERS: Referring Provider Physician Assistant; Visit Provider Physician Assistant
DX: R92.8 Other abnormal and inconclusive findings on diagnostic imaging of breast (principal)
CPT/HCPCS: 76641; 77061; 77065; G0279

== ENCOUNTER 2025-02-16 08:55 | Day surgery (SDC) | payer MEDICAID, SELFPAY ==
--- NOTE | 2025-02-15 12:59 | EKG_ITS ---
[facility] Test Date: 2025-02-15 Pat Name: OK CONTE Department: Room: - Gender: Female Carpet Tile Layer: GEORGE : 1960 Requested By: Arnold Jeffery Order Number: [id number] Reading MD: Arnold Jeffery Measurements Intervals Hewitt Rate: 82 P: 53 SC: 147 QRS: 44 QRSD: 83 T: 64 QT: 353 QTc: 415 Interpretive Statements SINUS RHYTHM LOW QRS VOLTAGE IN PRECORDIAL LEADS [QRS DEFLECTION < 1.0 mV IN CHEST LEADS] Compared to ECG 01/28/2024 17:54:55 Low QRS voltage now present /store/S0/[id number]/ecg/[id number].pdf
[2025-02-15 13:11] VITALS: BMI 25.3
[2025-02-15 14:20] LABS: Basophils # (Auto) 0.0 Thou/mm3 (0.0-0.2); Basophils % (Auto) 1 % (0-2.5); Eosinophils # (Auto) 0.4 Thou/mm3 (0.0-0.5); Eosinophils % (Auto) 5 % (0-10); Hematocrit 38.9 % (36.0-46.0); Hemoglobin 12.9 g/dL (12.0-16.0); Immature Granulocytes Auto 0.01 Thou/mm3 (0.00-0.00); Lymphocytes # (Auto) 2.5 Thou/mm3 (1.0-4.8); Lymphocytes % (Auto) 31 % (10-50); Mean Corpuscular HGB Conc 33.2 g/dl (31.0-37.0); Mean Corpuscular Hemoglobin 29.7 pg (25.0-35.0); Mean Corpuscular Volume 89 fL (80-100); Monocytes # (Auto) 0.7 Thou/mm3 (0.0-0.8); Monocytes % (Auto) 8 % (0-12); Neutrophils # (Auto) 4.5 Thou/mm3 (1.8-7.7); Neutrophils % (Auto) 55 % (37-80); Nucleated Red Blood Cell # 0.00 Thou/mm3 (0.00-0.00); Nucleated Red Blood Cell % 0 /100 WBC (0); Platelet Count 312 Thou/mm3 (140-440); RDW Standard Deviation 42.9 fL (36.4-46.3); Red Blood Count 4.35 Miln/mm3 (4.00-5.20); White Blood Count 8.1 Thou/mm3 (3.6-11.0)
[2025-02-15 14:36] LABS: Alanine Aminotransferase 10 U/L (10-49); Albumin, Serum 4.4 gm/dL (3.4-4.8); Albumin/Globulin Ratio 1.8 (1.2-2.2); Alkaline Phosphatase 90 U/L (46-116); Anion Gap 8 (7-16); Aspartate Amino Transferase 15 U/L (0-34); BUN/Creatinine Ratio 18 Ratio (12-20); Bilirubin,Total 0.4 mg/dL (0.3-1.2); Blood Urea Nitrogen 14 mg/dL (9-23); Calcium 9.9 mg/dL (8.3-10.6); Calcium (Corrected) 9.9 mg/dL (8.5-10.1); Carbon Dioxide 25.6 mMol/L (20.0-31.0); Chloride 108 mMol/L (98-107); Creatinine (Component) 0.8 mg/dL (0.6-1.3); Estimated Creatinine Clearance 65.2 mL/min (>60); Globulin 2.5 gm/dL (2.3-3.5); Glucose 106 mg/dL (74-106); Osmolality,Calculated 283 (275-295); Potassium 3.9 mMol/L (3.4-5.1); Sodium 142 mMol/L (136-145); Total Protein 6.9 gm/dL (5.7-8.2); eGFR > 60 See Note
[2025-02-15 14:56] LABS: INR 1.0 (0.9-1.3); Partial Thromboplastin Time 24.2 Seconds (22.0-36.0); Prothrombin Time 10.7 Seconds (9.0-12.2)
--- NOTE | 2025-02-15 15:47 | SUR.PREOP ---
Voice message left for pt to come in tomorrow at 0900.
[2025-02-16] VITALS (10 sets, daily range): BP systolic 124–154; BP diastolic 69–88; PULSE 68–96; RESP 12–19; TEMP 36.2–36.9; O2SAT 97–100; BMI 25.2
[2025-02-16] MEDS: RINGERS LACTATED 1000 ML 1,000 ML 20 ML IV (10:00)
--- NOTE | 2025-02-16 10:02 | SUR.PREOP ---
Patient expressed gratitude for prayer before their procedure.
--- NOTE | 2025-02-16 12:11 | SUR.PHASEI ---
pt received from OR in recovery bay 5. pt asleep but responds to voice, breathing unlabored on room air. v/s stable. pt dressing to left hand cdi. report received from Dr. Grant and Steph PINTO.
--- NOTE | 2025-02-16 12:18 | PD.SUROPNT ---
Date of Procedure 02/16/25 Pre Op Diagnosis Left carpal tunnel compression Post Op Diagnosis Same Procedure Left carpal tunnel release Findings Patient has significant compression of the median nerve. The deep carpal ligament was extremely thick. Procedure Description The patient was given general endotracheal anesthesia. Was satisfactory anesthesia was achieved a tourniquet was placed on left upper arm. Following that the part was thoroughly prepped and draped. After using Esmarch the tourniquet pressure was raised to 250 mmHg Skin in incision was made from the wrist crease extending distally for about couple of inches or so. Dissection was carried out. Following that the subcu tissue and the fascia was incised. Palmar aponeurosis was then incised in the line of his skin incision. The palmaris brevis muscle was then incised. Taking care not to damage any deeper structure a gentle stab incision was made in deep carpal ligament. A Harrold was introduced underneath to protect the median nerve. Following that the deep carpal ligament was incised all along its vertical length At the end of the procedure the median nerve was thoroughly decompressed and blood vessels could be seen running overweight Wound was irrigated with antibiotic solution every 4 to 5 minutes Closure was done with the help of 3-0 Prolene in an interrupted fashion About 12 mL of quarter percent Marcaine was injected at the skin incision site To cleaning the wound with hydrogen peroxide solution sterile dressing was applied and tourniquet pressure was released Patient tolerated procedure well. Cemented blood loss negligible. Anesthesia GETA Pathology / specimen None Estimated Blood Loss 0 Surgeon Arnold Dang MD Surgical Staff Operation Date: 02/16/25 11:15 Case Staff Anesthesiologist: William Grant
[2025-02-16] MEDS: fentaNYL CIT INJ 50 mCg/ML AMP 2ML IVP (12:24)
--- NOTE | 2025-02-16 12:51 | SUR.PHASEII ---
1249 patient is awake, alert, breathing unlabored dressing to left hand dry with no bleeding, patient able to wiggle fingers with good circulation. Report received from dmitriy PINTO
[2025-02-16] MEDS: ONDANSETRON INJ 2 MG/ML INJ 2 ML 4 MG IVP (12:55)
--- NOTE | 2025-02-16 13:17 | ESHP_ITS ---
RE: OK CONTE : 1960 DATE OF ADMISSION: 02/16/2025 The patient came to my office on 02/15/2025 for detailed preop history and physical examination. HISTORY OF PRESENTING COMPLAINT: The patient presented to me earlier with history of numbness in the left hand. The numbness is present in outer 4 digits. The patient is unable to make a fist and ground mixer. The patient gets burning and tingling sensation and keeps her awake at night. Clinically, the patient has left carpal tunnel compression. The patient underwent left nerve conduction studies and EMG, which showed left carpal tunnel compression. The patient wants surgical procedure as it is bothering her and quality of life and activities of daily living is affected. The patient also has weak fist and ground mixer. PAST MEDICAL HISTORY: No history of diabetes mellitus, high blood pressure, asthma, seizure, chest pain, myocardial infarction, or bleeding disorder. PAST SURGICAL HISTORY: Back surgery in 1990, varicose surgery in 2024, and bilateral armpit surgery in 1986. FAMILY HISTORY AND SOCIAL HISTORY: Noncontributory. PHYSICAL EXAMINATION: GENERAL: Normal built lady. Pulse 88 per minute. Blood pressure 130/76. NECK: Soft, supple. No masses felt. Trachea is centrally placed. CARDIOVASCULAR SYSTEM: First and second heart sounds normal. No murmur heard. RESPIRATORY SYSTEM: Bilateral vesicular breath sounds. CHEST: Clear. ABDOMEN: Soft. No masses felt. Bowel sounds present. EXTREMITIES: Left hand examination revealed no wasting of the thenar and/or hypothenar eminence. There is decreased sensation in outer 4 digits. Tinel's sign and Phalen signs are positive. Weak fist and ground mixer. Nerve conduction studies and EMG showed left carpal tunnel compression. Since the patient is symptomatic, therefore, left carpal tunnel release was discussed and advised. Risks of anesthesia were explained and that includes, but not limited to reaction to anesthetic agents, cardiac arrest or rarely it might be fatal. Risks of operation includes infection and if that happens, the patient may need further surgical procedure. Other risks include delayed healing, wound dehiscence, etc. Sometimes there is a risk of damage to the nerve and the patient is fully aware of that. There is a risk of a recurrence as well. No guarantees given regarding functional outcome or relief of symptoms and the patient is fully aware of that. Surgery booked for 02/16/2025. Appropriate lab work done. DT: 12:25:22 TT: 13:16:00 Ref: [id number] - TID: [id number]
--- NOTE | 2025-02-16 13:22 | SUR.PHASEII ---
1320 patient is awake, alert, breathing unlabored, dressing to hand dry with no bleeding, discharge instructions given to patient and daughter hannah, patient discharged home in wheelchair with all belongings.
== END 2025-02-16 13:20 | disposition home or self-care (01) ==
PROVIDERS: Anesthesiology; PCP Physician Assistant; Referring Provider Orthopaedic Surgery; Visit Provider Orthopaedic Surgery
PROC: (CPT 64721; principal; 2025-02-16 11:00)
DX: G56.02 Carpal tunnel syndrome, left upper limb (principal); Z01.810 Encounter for preprocedural cardiovascular examination
CPT/HCPCS: 64721; 36415; 80053; 85025; 85610; 85730; 93005; A4217; A4649; J0690; J1100; J1580; J2371; J2405; J2704; J2765; J3010; J3490; J7120; J0665

== ENCOUNTER → 2025-03-15 | Outpatient (CLI) | payer MEDICAID, SELFPAY ==
--- NOTE | 2025-03-15 08:30 | XR_ITS ---
Examination: Diagnostic digital mammography, unilateral, left Computer aided detection 3-D breast Tomosynthesis, unilateral Date and time of exam: March 15, 2025 0820 hours INDICATIONS: Mammogram February 10, 2025 2 foci of grouped microcalcifications outer left breast Technique: Nonmagnified MLO, CC views of the left breast have been obtained, reconstructed from 3-D Tomosynthesis images. R2 computer aided detection program utilized for evaluation of suspicious masses and/or abnormal calcifications. 3-D Tomosynthesis images obtained. Findings: Scattered areas of fibroglandular density. The spot compression lateral medial films are not centered high Impression: BI-RADS category 0: Incomplete: Need additional imaging evaluation This patient should return for follow-up magnification lateral medial film centered more cephalad
== END | disposition home or self-care (01) ==
LOC: CDIM 08:09
PROVIDERS: Referring Provider Registered Nurse; Visit Provider Registered Nurse
DX: R92.342 Mammographic extreme density, left breast (principal); R92.0 Mammographic microcalcification found on diagnostic imaging of breast
CPT/HCPCS: 77061; 77065; G0279

== ENCOUNTER → 2025-06-11 | Outpatient (CLI) | payer MEDICAID, SELFPAY ==
[2025-06-11 13:28] LABS: Basophils # (Auto) 0.0 Thou/mm3 (0.0-0.2); Basophils % (Auto) 0 % (0-2.5); Eosinophils # (Auto) 0.2 Thou/mm3 (0.0-0.5); Eosinophils % (Auto) 2 % (0-10); Hematocrit 38.7 % (36.0-46.0); Hemoglobin 12.6 g/dL (12.0-16.0); Immature Granulocytes Auto 0.01 Thou/mm3 (0.00-0.00); Lymphocytes # (Auto) 2.2 Thou/mm3 (1.0-4.8); Lymphocytes % (Auto) 28 % (10-50); Mean Corpuscular HGB Conc 32.6 g/dl (31.0-37.0); Mean Corpuscular Hemoglobin 29.6 pg (25.0-35.0); Mean Corpuscular Volume 91 fL (80-100); Monocytes # (Auto) 0.5 Thou/mm3 (0.0-0.8); Monocytes % (Auto) 6 % (0-12); Neutrophils # (Auto) 4.8 Thou/mm3 (1.8-7.7); Neutrophils % (Auto) 63 % (37-80); Nucleated Red Blood Cell # 0.00 Thou/mm3 (0.00-0.00); Nucleated Red Blood Cell % 0 /100 WBC (0); Platelet Count 309 Thou/mm3 (140-440); RDW Standard Deviation 44.0 fL (36.4-46.3); Red Blood Count 4.26 Miln/mm3 (4.00-5.20); White Blood Count 7.7 Thou/mm3 (3.6-11.0)
[2025-06-11 13:46] LABS: INR 0.9 (0.9-1.3); Partial Thromboplastin Time 25.2 Seconds (22.0-36.0); Prothrombin Time 10.1 Seconds (9.0-12.2)
== END | disposition home or self-care (01) ==
LOC: SLAB 06-14 07:50
PROVIDERS: Radiology Diagnostic Radiology; PCP Family Medicine
DX: R92.0 Mammographic microcalcification found on diagnostic imaging of breast (principal)
CPT/HCPCS: 36415; 85025; 85610; 85730